=== PATIENT | female | born 1990 | race African-American/Black ===

== ENCOUNTER 2018-12-18 10:54 | Emergency (ER) | payer MEDICARE, MEDICAID ==
[~2018-12-18] VITALS: Ht 170.2 cm; Wt 76.0 kg
[2018-12-18 12:33] VITALS: BP 123/81
== END 2018-12-18 13:19 | disposition home or self-care (01) ==
LOC: ER 10:54
DX: L81.9 Disorder of pigmentation, unspecified (principal); Z98.890 Other specified postprocedural states
CPT/HCPCS: 82962; 99282